=== PATIENT | male | born 1950 | race African-American/Black ===

== ENCOUNTER → 2017-07-14 | Day surgery (SDC) | payer BC ==
[2017-07-06 10:29] VITALS: BMI 25.0
--- NOTE | 2017-07-06 11:08 | PAT Medication Instructions ---
Service Date Jul 06, 2017. Current Home Medication List Folic Acid (Folvite), 1 MG PO QPM Methotrexate (Methotrexate), 15 MG PO WEEKLY Tramadol (Ultram), 50 MG PO Q6H PRN for support representative Instructions For Your Scheduled Surgery Contact your prescriber for instructions for: Methotrexate (Methotrexate), 15 MG PO WEEKLY - Take the following medications the morning of surgery with a sip of water: Tramadol (Ultram), 50 MG PO Q6H PRN for RN (if needed) - Take the following medications as scheduled the night before surgery: Folic Acid (Folvite), 1 MG PO QPM Tramadol (Ultram), 50 MG PO Q6H PRN for RN (if needed) If you have any questions please call us at [phone] or [phone] or [phone]
--- NOTE | 2017-07-06 12:04 | DIAGNOSTIC IMAGING REPORT ---
CERVICAL SPINE 3 VIEWS HISTORY: pre-op, RA, lateral: neutral flexion extension COMPARISON: None. FINDINGS: Lateral, flexion, extension views of the cervical spine. The cervical spine is visualized from C1 through the superior endplate of T1. There is no fracture. No subluxation. Straightening of the cervical spine. Alignment remains intact throughout flexion and extension. Moderate to severe degenerative disc disease throughout the cervical spine. 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 Prevertebral soft tissues and the atlantodens interval are intact. IMPRESSION: No fracture or subluxation within the cervical spine. Alignment remains intact throughout flexion and extension. Electronically signed by: Von Noriega M.D. 07/06/2017 12:02 PM Dictated Date/Time: 07/06/2017 12:01 PM
[2017-07-06 12:12] LABS: BASO % 0.5 %; BASO ABS # 0.06 K/uL (0-0.2); EOS % 2.4 %; EOS ABS # 0.26 K/uL (0-0.5); HEMATOCRIT 41.5 % (42-52); HEMOGLOBIN 13.7 g/dL (14.0-18.0); IG# 0.04 K/uL (0.00-0.02); LYMPH % 19.5 %; LYMPH ABS # 2.14 K/uL (1.2-3.4); MEAN CELL VOLUME 85.2 fL (80-100); MEAN CORPUSCULAR HEMOGLOBIN 28.1 pg (25-34); MEAN PLATELET VOLUME 11.4 fL (7.4-10.4); MONO % 8.8 %; MONO ABS # 0.96 K/uL (0.11-0.59); NEUT % 68.4 %; NEUT ABS # 7.49 K/uL (1.4-6.5); PLATELET COUNT 199 K/uL (130-400); RED CELL DISTRIBUTION WIDTH CV 14.5 % (11.5-14.5); WHITE BLOOD COUNT 10.95 K/uL (4.8-10.8)
[2017-07-06 12:56] LABS: CALCIUM 8.9 mg/dl (8.5-10.1); CREATININE 0.88 mg/dl (0.60-1.40); POTASSIUM 3.9 mmol/L (3.5-5.1)
[~2017-07-14] VITALS: Ht 177.8 cm; Wt 79.5 kg
[~2017-07-14] MED LIST: ATROPINE SULFATE 0.1 MG/ML 5ML SYR IV PRN; CLINDAMYCIN PHOS 150 MG/ML 2 ML VIAL ONE; DEXAMETHASONE SOD INJ 4 MG/ML VIAL ONE; DiphenhydrAMINE HCL 50 MG/ML VIAL ONE; EpHEDrine SULFATE INJ 50 MG/ML AMP IV PRN; FENTANYL CITRATE INJ 50 MCG/1 ML 2 ML VIAL ONE; FOLI1TAB8 PO; GLYCOPYRROLATE INJ 0.2 MG/ML VIAL ONE; LACTATED RINGER'S 1000ML 1,000 ML IV SCH; LIDOCAINE HCL 2% 2 ML VIAL (20MG/ML) ONE; METH2.5T PO; MIDAZOLAM HCL 1 MG/ML 2ML VIAL ONE; MoRPHine SULFATE 2 MG/ML CARP IV PRN; NEOSTIGMINE METHYLSULFATE 5 MG/5 ML SYR ONE; NURSING VERBAL MED ORDER ONE; ONDANSETRON INJ 2 MG/ML 2 ML VIAL IV PRN; ONDANSETRON INJ 2 MG/ML 2 ML VIAL ONE; PROPOFOL IV EMULSION 10 MG/ML 20 ML VIAL IV ONE; ROCURONIUM BROMIDE 10 MG/ML 5 ML VIAL IV ONE; TRAM-10 PO; TRAMADOL HCL 50 MG TAB PO PRN
[2017-07-14 05:54] VITALS: BP 154/84; PULSE 75; TEMP 36.6; O2SAT 97; Ht 177.8 cm; Wt 79.5 kg
--- NOTE | 2017-07-14 07:10 | History & Physical Bridge Note ---
H&P Re-Evaluation Bridge Note: I have examined the patient, reviewed the History & Physical and in the interval since the performance of the History & Physical I have noted the following changes of clinical significance: No changes noted
--- NOTE | 2017-07-14 08:17 | Discharge Instructions ---
Discharge Instructions Date of Service Jul 14, 2017. Visit Reason for Visit: Mediastinal Adenopathy Discharge Discharge Diagnosis / Problem: Mediastinal Adenopathy Discharge Goals Goal(s): Learn about illness Activity Recommendations Activity Limitations: resume your previous activity (in 24 hours) Anesthesia . Post Anesthesia Instructions: If you have had General Anesthesia or IV Sedation: * Do not drive today. * Resume driving when surgeon permits. * Do not make important decisions or sign legal documents today. * Call surgeon for: 1. Temperature elevations greater than 101 degrees F. 2. Uncontrollable pain. 3. Excessive bleeding. 4. Persistent nausea and vomiting. 5. Medication intolerance (nausea, vomiting or rash). * For nausea and vomiting use only clear liquids such as: tea, soda, bouillon until nausea subsides, then gradually increase diet as tolerated. * If you have any concerns or questions, call your surgeon's office. If physician is unavailable and it is an emergency, call 911 or go to the nearest emergency room. . Instructions / Follow-Up Instructions / Follow-Up 1. Keep your scheduled appointment with Dr. Akhtar on July 26 @ 10:15. Diet Recommendations Recommended Home Diet: resume previous diet Procedures Procedures Performed: Video Mediastinoscopy with Biopsy Lymph Nodes Pending Studies Studies pending at discharge: no Medical Emergencies . Who to Call and When: Medical Emergencies: If at any time you feel your situation is an emergency, please call 911 immediately. . Non-Emergent Contact Non-Emergency issues call your: Surgeon Call Non-Emergent contact if: you have a fever, your pain is not controlled, wound has increased drainage . . "Provider Documentation" section prepared by Antwon Canseco. .
[2017-07-14] MEDS: FENTANYL CITRATE INJ 50 MCG/1 ML 2 ML VIAL IV PRN ×4 (08:39→09:08)
--- NOTE | 2017-07-14 08:48 | OPERATIVE REPORT ---
DATE OF OPERATION: 07/14/2017 PREOPERATIVE DIAGNOSIS: Mediastinal lymphadenopathy. POSTOPERATIVE DIAGNOSIS: Apparent reactive lymphadenopathy mediastinum. PROCEDURE: Video mediastinoscopy. SURGEON: Dr. Akhtar. ASSEMBLY LINE UPHOLSTERER: Mustapha Canseco PA-C (Mr. Canseco was present during the entire case and was instrumental in first assisting and handling the biopsy specimens. He also closed at the end of the case.) ANESTHESIA: General anesthesia endotracheal intubation. INDICATION FOR PROCEDURE AND FINDINGS: Mr. Leija is a 66-year-old male who has mediastinal adenopathy and underwent endobronchial ultrasound with no real diagnosis. I was asked to see him and offered him a video mediastinoscopy. On 07/14/2017 the patient underwent uncomplicated video mediastinoscopy. His nodes were rather hard. I biopsied the right level 2, right level 4, level 7 lymph nodes. I did not biopsy anything on the left side. We really got into no bleeding. Frozen section showed sheets of histiocytes. He tolerated it well. OPERATION AND FINDINGS: PROCEDURE: The patient was brought to the operating room, laid in supine position. General anesthesia induced and endotracheal intubation was performed. After prepping and draping in usual sterile fashion. Appropriate timeout was called and antibiotics were given. Incision was made one fingerbreadth above the sternal notch taken down to the strap muscles, which were divided. Blunt dissection was then continued on top of the isthmus and then went down to the pretracheal plane. A video mediastinoscope was placed. We immediately came upon a large right level 2 node which was acanthotic. This was then biopsied in its entirety and handed off the field. Some was sent for culture. Going further down, I then biopsied the level 4 area and identified the azygos vein and removed a large node superior to this. I then went down further to the level 7 area and biopsied this. Bleeding was controlled with cautery. I did not go onto the left side as the lymphadenopathy was more significant on the right. Really saw no bleeding. Frozen section came back of claim representative tissue. I slowly withdrew the video mediastinoscope. We really had no significant bleeding. 3-0 Vicryl was used in running continuous fashion to reapproximate the strap muscles and 4-0 Monocryl was used in running subcuticular fashion to approximate the wound edges. I attest to the content of the Intraoperative Record and any orders documented therein. Any exception s are noted below.
--- NOTE | 2017-07-14 09:02 | DIAGNOSTIC IMAGING REPORT ---
CHEST ONE VIEW PORTABLE CLINICAL HISTORY: 66 years-old Male presenting with s/p mediastinoscopy. TECHNIQUE: Portable upright AP view of the chest was obtained. COMPARISON: 02/09/[address] from 04/07/2017. FINDINGS: Atherosclerosis of the aortic arch. Cardiac silhouette normal in size. Prominent and heterogeneous lung markings. Suggestion of apical bulla. Bandlike opacity at the right apex. No new focal infiltrate. Blunting of the left costophrenic angle. No pneumothorax or pneumomediastinum. Scoliotic curvature of the spine could in part be positional. Cholecystectomy clips noted. IMPRESSION: 1. No pneumothorax or pneumomediastinum. 2. Prominent and heterogeneous lung markings. This could relate to underlying emphysema. No focal infiltrate. 3. Possible trace left pleural effusion. Electronically signed by: Robby Roth M.D. 07/14/2017 9:01 AM Dictated Date/Time: 07/14/2017 8:57 AM
--- NOTE | 2017-07-14 09:19 | Anesthesiology Progress Note ---
Anesthesia Post Op Note Date & Time Jul 14, 2017 at 09:19 Vital Signs Pain Intensity: 5 Vital Signs Past 12 Hours Date Time Temp Pulse Resp B/P (MAP) Pulse Ox O2 Delivery O2 Flow Rate FiO2 07/14/17 09:10 77 12 145/93 96 Nasal Cannula 2 07/14/17 09:00 73 12 167/93 98 Nasal Cannula 2 07/14/17 08:50 72 12 170/86 98 Nasal Cannula 2 07/14/17 08:40 77 14 169/96 100 Nasal Cannula 2 07/14/17 08:30 36.0 74 16 187/99 98 Room Air 07/14/17 05:54 36.6 75 75 154/84 (107) 97 Room Air Notes Mental Status: alert / awake / arousable, participated in evaluation Pt Amnestic to Procedure: Yes Nausea / Vomiting: adequately controlled Pain: adequately controlled Airway Patency, RR, SpO2: stable & adequate BP & HR: stable & adequate Hydration State: stable & adequate Anesthetic Complications: no major complications apparent
[2017-07-14 09:30] VITALS: BP 156/81; PULSE 85; TEMP 36.6; O2SAT 93
[2017-07-14 10:01] VITALS: BP 171/97; PULSE 77; O2SAT 97
[2017-07-14 10:25] VITALS: BP 158/88; PULSE 81; O2SAT 98
[2017-07-14 11:05] VITALS: BP 168/86; PULSE 76; TEMP 36.5; O2SAT 96
--- NOTE | 2017-07-14 11:12 | SURGERY PROGRESS NOTE ---
DATE: 07/14/2017 DATE: 07/14/2017 Mr. Leija underwent a video mediastinoscopy earlier today. He has awakened without difficulty. I saw him in the PACU. He was on room air with good saturations. His x-ray showed no evidence of a pneumothorax or infiltrate. He stated he was having trouble swallowing because of pain. He became a bit anxious about it. He was given tramadol when this really started, but he takes this at home. Benadryl seemed to settle him down. His lungs are clear. His incision is clean. There is no swelling. His x-ray looks fine. Saturations were excellent. I think he is stable to go home when anesthesia clears him.
[2017-07-14 11:30] VITALS: BP 163/84; PULSE 85; TEMP 36.5; O2SAT 97
== END | disposition home or self-care (01) ==
LOC: C.ACU 05:26
PROVIDERS: ATTEND Surgery
DX: R59.0 Localized enlarged lymph nodes (principal); Z88.0 Allergy status to penicillin; Z98.890 Other specified postprocedural states; Z90.49 Acquired absence of other specified parts of digestive tract; Z96.641 Presence of right artificial hip joint; Z87.891 Personal history of nicotine dependence; Z82.3 Family history of stroke; Z82.49 Family history of ischemic heart disease and other diseases of the circulatory system; Z83.3 Family history of diabetes mellitus